=== PATIENT | male | born 2000 ===

== ENCOUNTER 2023-12-24 15:47 | Outpatient (CLI) | payer OTHER, SELFPAY ==
--- NOTE | ~2023-12-24 | XR_ITS ---
EXAMINATION: XR ribs RT 2V DATE: 12/24/2023 16:12 INDICATION: Fall on/from other stairs and steps, initial encounter. TECHNIQUE: 2 views of the right ribs on 3 radiographs were obtained. COMPARISON: None. FINDINGS: There is no right-sided pneumonia, pleural effusion, or pneumothorax. The heart size is nor mal. IMPRESSION: 1. No rib fracture. Reviewed, dictated and finalized at location A. IMPRESSION: 1. No rib fracture.
== END 2023-12-24 15:48 ==
PROVIDERS: PCP Nurse Practitioner; Visit Provider Nurse Practitioner
DX: R07.81 Pleurodynia (principal); W10.8XXA Fall (on) (from) other stairs and steps, initial encounter
CPT/HCPCS: 71100

== ENCOUNTER 2024-07-31 12:00 | Emergency (ER) | payer OTHER, SELFPAY ==
[2024-07-31 12:35] VITALS: BP 113/71; PULSE 73; RESP 16; TEMP 36.3; O2SAT 100
--- NOTE | 2024-07-31 12:48 | ED.BACK ---
HPI - Back Pain/Injury General Chief Complaint: Back Pain/Injury Stated Complaint: Low Back Pain Time Seen by Provider: 07/31/24 12:50 Source: patient Mode of arrival: ambulatory Limitations: no limitations History of Present Illness HPI Narrative: 24-year-old male presented for complaint of left lower back pain for 2 weeks. This morning the pain was severe. He states the pain has moved to the right side at times since onset. Patient states about 2 months ago he believes he passed a kidney stone, he did not get evaluated for this. He states he was having abdominal pain, back pain, and vomiting, and discussed these symptoms with a roommate who said his symptoms are similar to a kidney stone and advised him to drink a lot of water. After doing so he passed a stone. Patient currently denies any urinary complaints, nausea vomiting, diarrhea, constipation, fevers or chills. Patient denies injury, lifting, or over use. He has not taken any medicine for pain for over 1 month, stating he took something from Xochit[employer]. Denies pain radiating into the hips or legs, numbness, tingling, weakness of the lower extremities, or change in gait, saddle paresthesia or loss of bowel or bladder. Rates pain 3/10 currently. Related Data Home Medications ?Medication ?Instructions ?Recorded ?Confirmed ?Last Taken ?Type No Home Medications 07/31/24 07/31/24 Unknown History Allergies Allergy/AdvReac Type Severity Reaction Status Date / Time No Known Allergies Allergy Verified 07/31/24 12:47 Review of Systems Review of Systems: CONSTITUTIONAL: Denies body aches, fever, chills EYES: Denies visual changes CARDIOVASCULAR: Denies chest pain, palpitations, or edema. RESPIRATORY: Denies cough or dyspnea. GASTROINTESTINAL: Denies abdominal pain, nausea, vomiting, or diarrhea. SKIN: Denies rash, itching, or wounds. MUSCULOSKELETAL: reports back pain NEUROLOGIC: Denies headache, numbness, tingling, or weakness. All systems reviewed & are unremarkable except as noted in HPI and below PMFSH Comments At time of signature, I have reviewed and agree with nursing past medical, surgical, social and family history unless otherwise noted. Please see nursing chart for further information. There is no relevant family history pertinent to the presenting complaint Exam Narrative: GENERAL: Well-appearing CHEST: Speaks in full sentences. No respiratory distress. HEART: Regular rate and rhythm. Normal and equal peripheral pulses. MUSC: No Vertebral point tenderness or paraspinal tenderness. Pain is reported to left lower back, nontender to the site with palpation. No CVA tenderness. BLEs with normal strength and sensation, normal range of motion. No ecchymosis, No open wounds, or obvious deformity; alignment normal, pulse palpable and equal bilaterally, skin warm, dry, pink. Capillary refill less than 3 seconds. Gait steady. SKIN: Warm, dry, no rash. NEURO: Alert and oriented x3. Course Course Emergency Course: Patient is aware of diagnosis, understands and agrees to treatment plan. Anticipatory guidance given. Patient agrees to follow-up as directed and is aware of reasons to seek care at the emergency department. Portions of this record may have been created with voice recognition software Level of Care: Express Care Visit Vital Signs Vital signs: Vital Signs Temperature 97.3 F L 07/31/24 12:35 Pulse Rate 73 07/31/24 12:35 Respiratory Rate 16 07/31/24 12:35 Blood Pressure 113/71 07/31/24 12:35 Pulse Oximetry 100 07/31/24 12:35 Temperature 97.3 F L 07/31/24 12:35 Pulse Rate 73 07/31/24 12:35 Respiratory Rate 16 07/31/24 12:35 Blood Pressure 113/71 07/31/24 12:35 Pulse Oximetry 100 07/31/24 12:35 Reviewed MDM - Back Pain/Injury MDM Narrative Medical decision making narrative: Pt is advised ER transfer for possible renal stones, however he states he is a student and is concerned about the cost. Plans to call insurance company again in the morning, and go to the ER. Also states if the pain gets worse he will take something for pain. Differential Diagnosis Differential diagnosis: Likely lumbar radiculopathy, sciatica, strain of lumbar region, renal colic, pyelonephritis and discitis Lab Data Labs: Lab Results 07/31/24 Range/Units 12:57 POC Urine Color Light/pale POC Urine Clarity Clear POC Urine pH 7.0 POC Ur Specif Herrick 1.015 POC Urine Protein Negative (Negative) POC Ur Glucose (UA) Negative (Negative) POC Urine Ketones Negative (Negative) POC Urine Blood Trace (Negative) POC Urine Nitrite Negative (Negative) POC Urine Bilirubin Negative (Negative) POC Urine Urobilinogen 0.2 POC U Leukocyte Esteras Negative (Negative) Discharge Plan Discharge Clinical Impression: Acute left-sided low back pain Patient Disposition: Home, Self-Care Condition: Stable Instructions: Flank Pain (ED) Additional Instructions: You were advised to transfer to the ER for further evaluation of the back pain, and you decline at this time. You were made aware of the risk of refusal including worsening of your condition and . Report to the ER immediately by calling 911 for any worsening symptoms. Please follow up with your Primary Care Doctor tomorrow - call for an appointment. Avoid lifting. pushing. pulling, or anything that worsens the pain. Walking and other gentle exercising several times a week has been shown to improve back pain; bed rest is not recommended. Take Motrin 800mg every 8 hours with food for the next 2-3 days, along with Tylenol 1000mg every 8 hours Over the counter pain cream like icy/hot or biofreeze, or Salon pas/lidocaine 4% patch. You may apply heat or cold to the area as needed. Go to the emergency room for any worsening symptoms or concerns Patient Language: Unknown Prescriptions: No Action No Home Medications Follow-up/Referrals: Harrison,RONALDO Rajput [Primary Care Provider] - Time of Disposition: 14:07
[2024-07-31 12:58] LABS: EDUAAPPEAR Clear; EDUABILI Negative (Negative); EDUABLOOD Trace (Negative); EDUACOLOR1 Light/Pale; EDUAGLUCOSE Negative (Negative); EDUAKETONE Negative (Negative); EDUALEUKO Negative (Negative); EDUANITRATE Negative (Negative); EDUAPROTEIN Negative (Negative); EDUASPGRAVITY 1.015; EDUAUROBILI 0.2
== END 2024-07-31 14:10 | disposition home or self-care (01) ==
PROVIDERS: Emergency Provider Nurse Practitioner Family; PCP Nurse Practitioner
DX: M54.50 Low back pain, unspecified (principal)
CPT/HCPCS: 81003; 99202; G0463